=== PATIENT | female | born 1980 | race Two or more races ===

== ENCOUNTER 2016-08-21 13:08 | Emergency (ER) | payer SELFPAY ==
[2016-08-21] MEDS ORDERED: IOPAMIDOL 370 (76%) 100 ML VIAL IV ONE (13:09)
[2016-08-21] MEDS ORDERED: METOCLOPRAMIDE HCL 5 MG/ML 2ML VIAL ONE (14:24)
[2016-08-21] MEDS ORDERED: LACTATED RINGERS 1,000 ML ONE (14:24)
[2016-08-21] MEDS ORDERED: DIPHENHYDRAMINE HCL 50 MG/1 ML VIAL ONE (14:24)
[2016-08-21 14:32] LABS: ABSOLUTE NEUTROPHIL COUNT 9.5 K/mm3 (1.8-7.7); BASO % 0.3 % (0.2-1.0); EOS % 0.2 % (0.9-2.9); HEMATOCRIT 40.6 % (37.0-47.0); HEMOGLOBIN 13.3 gm/l (12.0-16.0); IMM NEUT% 0.3 % (0-1); LYMPH % 16.4 % (15-45); MEAN CELL VOLUME 90.6 fl (81.0-99.0); MEAN CORPUSCULAR HEMOGLOBIN 29.7 pg (27.0-31.0); MEAN CORPUSCULAR HGB CONC 32.8 g/dl (33.0-37.0); MEAN PLATELET VOLUME 10.3 fl (7.4-10.4); MONO # 0.6 (0.0-0.8); MONO % 4.6 % (4-12); NEUT % 78.2 % (43-75); PLATELET COUNT 337 K/mm3 (130-400); RED CELL DISTRIBUTION WIDTH 12.6 % (11.5-14.5)
[2016-08-21 14:38] LABS: SPECIFIC GRAVITY 1.015 (1.001-1.030); URINE APPEARANCE CLEAR; URINE BILIRUBIN NEGATIVE (NEGATIVE); URINE BLOOD TRACE (NEGATIVE); URINE COLOR YELLOW; URINE GLUCOSE (UA) NEGATIVE (NEGATIVE); URINE LEUKOCYTE ESTERASE NEGATIVE (NEGATIVE); URINE NITRITE NEGATIVE (NEGATIVE); URINE PROTEIN NEGATIVE (NEGATIVE); URINE UROBILINOGEN NORMAL (0-1 mg/dl)
[2016-08-21 14:39] LABS: HCG,QUALITATIVE URINE NEGATIVE
[2016-08-21 14:50] LABS: URINE AMORPHOUS SEDIMENT FEW; URINE BACTERIA FEW; URINE WBC RARE /hpf
--- NOTE | 2016-08-21 15:56 | CT ---
INTRACRANIAL CTA WITH AND WITHOUT CONTRAST HISTORY:Thunderclap headache, 11 hours. Prior to and following administration of 80 cc Isovue 370 intravenous contrast contiguous axial images acquired from skull base to vertex. Three-dimensional reformatted imaging was not performed. COMPARISON:None. BRAIN VOLUME:Grossly unremarkable for patient age. VENTRICULAR SIZE:No gross ventriculomegaly. FOCAL MASS EFFECT:None. ACUTE INTRACRANIAL HEMORRHAGE:None. CALVARIUM:Grossly intact. VISIBLE PARANASAL SINUSES AND MASTOID AIR CELLS:Grossly clear. POSTERIOR CIRCULATION: No high-grade stenosis or occlusion noted. ANTERIOR CIRCULATION: No high-grade stenosis or occlusion noted. POST CONTRAST IMAGING: No dominant focal enhancing lesion identified. Minor 3 mm dural-based focus of enhancement on the left may simply reflect a small venous diverticulum. SACCULAR ANEURYSM: none identified. IMPRESSION: No gross mass effect, ventriculomegaly, or acute intracranial hemorrhage. No high-grade stenosis, occlusion, or dominant saccular aneurysm. Minor 3 mm peritentorial focus of enhancement on the left may simply reflect a small venous diverticulum. Otherwise, no abnormally enhancing lesions. Results were electronically transmitted to the electronic medical record at 08/21/2016 at 1552 hours.
[2016-08-21] MEDS ORDERED: KETOROLAC TROMETHAMINE 15 MG/ML VIAL ONE (16:15)
[2016-08-21 17:15] LABS: I-STAT CREATININE 0.6 mg/dL (0.6-1.3)
[2016-08-21 18:38] LABS: CALCIUM 9.4 mg/dL (8.6-10.3)
== END 2016-08-21 17:04 | disposition home or self-care (01) ==
LOC: ED 13:08
DX: R51 Headache (principal); R30.0 Dysuria
CPT/HCPCS: 81025; 85025; 80048; 81001; 70450; 70496; 96375 ×2; 99283 ×2; 96374; 96361; J1200; J2765; J1885; J7120; Q9967